=== PATIENT | male | born 1940 | race Two or more races ===

== ENCOUNTER → 2017-06-26 | Emergency (ER) | payer OTHER ==
[~2017-06-26] VITALS: Ht 160 cm; Wt 78.0 kg
[~2017-06-26] MED LIST: AMLODIPINE BESYL MC; BENICAR40 MG; COUMADIN4 MG; DOXAZOSIN MESYLA4 MG; ELIQUIS5 MG PO; LASIX40 MG; METROPOLOL; MINOXIDIL10 MG; SYNTHROID50 MCG
== END | disposition home or self-care (01) ==
LOC: ER 16:10
DX: K29.70 Gastritis, unspecified, without bleeding (principal); R10.13 Epigastric pain

== ENCOUNTER → 2017-09-22 | Emergency (ER) | payer OTHER ==
[~2017-09-22] VITALS: Ht 165.1 cm; Wt 78.0 kg
[~2017-09-22] MED LIST changes: +COZAAR50 MG; +METFORMIN HCL500 MG; +TOPROL XL25 M1
== END | disposition home or self-care (01) ==
LOC: ER 12:31
DX: R42 Dizziness and giddiness (principal)

== ENCOUNTER → 2019-05-12 | Outpatient (CLI) | payer OTHER | END | disposition home or self-care (01) | LOC: RAD 13:02 | DX: I50.89 Other heart failure (principal) ==

== ENCOUNTER → 2019-06-30 | Outpatient (CLI) | payer OTHER | END | disposition home or self-care (01) | LOC: RAD 09:47 | DX: I11.9 Hypertensive heart disease without heart failure (principal); Z82.3 Family history of stroke; Z95.0 Presence of cardiac pacemaker; E11.9 Type 2 diabetes mellitus without complications; I63.89 Other cerebral infarction; I48.20 Chronic atrial fibrillation, unspecified; J45.998 Other asthma; I86.1 Scrotal varices ==

== ENCOUNTER 2020-04-03 20:25 | Emergency (ER) | payer OTHER ==
[~2020-04-03] VITALS: Ht 165.1 cm; Wt 78.9 kg
[2020-04-03] MEDS ORDERED: LATANOPROST2.5 ML OP (20:45)
[2020-04-03] MEDS ORDERED: LISINOPRIL-HCT1 EAC2 PO (20:45)
[2020-04-03] MEDS ORDERED: METFORMIN HCL500 M4 PO (20:46)
[2020-04-03] MEDS ORDERED: ATORVASTATIN CA40 MG PO (20:46)
[2020-04-03] MEDS ORDERED: ELIQUIS2.5 MG PO (20:46)
[2020-04-03] MEDS ORDERED: AMLODIPINE BESYL5 MG PO (20:46)
== END 2020-04-04 11:13 | disposition home or self-care (01) ==
LOC: ER 20:25
DX: K52.9 Noninfective gastroenteritis and colitis, unspecified (principal); E86.0 Dehydration; B34.9 Viral infection, unspecified

== ENCOUNTER 2021-08-01 11:42 | Outpatient (CLI) | payer OTHER ==
[~2021-08-01 11:42] MED LIST changes: +AMLODIPINE BESYL5 MG PO; +ATORVASTATIN CA40 MG PO; +ELIQUIS2.5 MG PO; +LATANOPROST2.5 ML OP; +LISINOPRIL-HCT1 EAC2 PO; +METFORMIN HCL500 M4 PO
== END 2021-08-01 11:48 | disposition home or self-care (01) ==
LOC: RAD 11:42
PROVIDERS: ATTEND Specialist
DX: J45.998 Other asthma (principal)